=== PATIENT | male | born 1945 | race Caucasian/White ===

== ENCOUNTER 2019-10-13 13:28 | Outpatient (CLI) | payer MEDICARE, SELFPAY | END 2019-10-13 13:29 | disposition home or self-care (01) | LOC: CHSLAB 13:34 | PROVIDERS: PCP Internal Medicine; Visit Provider Specialist | DX: D22.5 Melanocytic nevi of trunk (principal) | CPT/HCPCS: 88305; 88342 ==

== ENCOUNTER 2020-10-11 11:54 | Outpatient (CLI) | payer MEDICARE, SELFPAY | END 2020-10-11 11:55 | disposition home or self-care (01) | LOC: CHSLAB 11:58 | PROVIDERS: PCP Internal Medicine; Visit Provider Specialist | DX: D22.9 Melanocytic nevi, unspecified (principal) | CPT/HCPCS: 88305; 88342 ==

== ENCOUNTER 2020-12-27 12:00 | Outpatient (CLI) | payer MEDICARE, SELFPAY | END 2020-12-27 12:01 | disposition home or self-care (01) | PROVIDERS: PCP Internal Medicine; Visit Provider Specialist | DX: D22.5 Melanocytic nevi of trunk (principal) | CPT/HCPCS: 88305; 88342 ==

== ENCOUNTER 2023-10-29 13:17 | Outpatient (CLI) | payer MEDICARE, SELFPAY | END 2023-10-29 13:18 | disposition home or self-care (01) | LOC: CHSLAB 13:20 | PROVIDERS: PCP Specialist; Visit Provider Specialist | DX: C44.319 Basal cell carcinoma of skin of other parts of face (principal) | CPT/HCPCS: 88305 ==